=== PATIENT | female | born 2000 | race Caucasian/White ===

== ENCOUNTER 2021-09-22 09:03 | Emergency (ER) | payer OTHER ==
[~2021-09-22] VITALS: Ht 162 cm; Wt 80.7 kg
--- OUTSIDE RECORDS SUMMARY | 2021-09-22 09:16 | XMS REPORT | Clinical Summary ---
Author Author [facility] Organization [facility] Address Unknown Phone Unavailable Care Team Providers Care Dural Mechanic Name Role Phone No, Pcp MACHINIST 2ND SHIFT PP Unavailable Allergies No known active allergies Medications No known medications Active Problems Not on file Social History Date Tobacco Use Types Packs/Day Years Used Never Smoker Smokeless Tobacco: Never Used Sex Assigned at Date Recorded Not on file Last Filed Vital Signs Reading Time Taken Comments Vital Sign 120/80 07/27/2020 6:06 PM CDT Blood Pressure 99 07/27/2020 6:06 PM CDT Pulse 37.2 C (98.9 F) 07/27/2020 6:06 PM CDT Temperature 14 07/27/2020 6:06 PM CDT Respiratory Rate 98% 07/27/2020 6:06 PM CDT Oxygen Saturation - - Inhaled Oxygen Concentration - - Weight - - Height - - Body Mass Index Plan of Treatment Health Maintenance Due Date Last Done Comments Cervical Cancer: 2020 Screening Results Not on filefrom Last 3 Months Insurance Type Payer Benefit Subscriber ID Effective Phone Address Plan / Dates Group [employer] [id number] 2019-P PPO/HMO/EP resent O/POS Care Teams Start Date End Date Dural Mechanic Relationship Specialty 07/27/20 No, Pcp, MACHINIST 2ND SHIFT PCP - General Family N/A Do not use Medicine
--- NOTE | 2021-09-22 09:38 | ED Abdominal Pain ---
General Chief Complaint: Abdominal/GI Problems Stated Complaint: SEVERE PAIN IN R SIDE Source of Information: Patient Exam Limitations: No Limitations History of Present Illness Date Seen by Provider: Sep 22, 2021 Time Seen by Provider: 09:15 Initial Comments Patient to the ER by private conveyance with chief complaint she was seen at walk-in clinic at [facility] yesterday for right flank pain and low hematuria. She had a urine sample done and she says it was consistent with her previous history of kidney stones so they put her on Bactrim and Toradol. She went back today because she did not feel the Toradol was helping. Last dose she took was 7:00 this morning, 2 hours prior to arrival. They repeated a urinalysis told her her urine was negative and told her to come out to the ER to get a CT scan done. They did not give her an outpatient order form. She is not having any fevers nausea vomiting. She says they told her they thought maybe it was her appendix. She has had no abdominal surgeries. No other significant medical history. She has control patch on. Allergies and Home Medications Patient Home Medication List Home Medication List Reviewed: Yes Review of Systems Review of Systems Constitutional: No chills, No diaphoresis EENTM: No Blurred Vision, No Double Vision Respiratory: Denies Cough, Denies Orthopnea Cardiovascular: Denies Chest Pain, Denies Lightheadedness Gastrointestinal: See HPI, Abdominal Pain; Denies Constipated, Denies Diarrhea; Nausea; Denies Vomiting Genitourinary: Denies Burning, Denies Discharge Musculoskeletal: back pain; No joint pain All Other Systems Reviewed Negative Unless Noted: Yes Past Evfkjcj-Ulpjpk-Tqjuoq Hx Patient Social History Tobacco Use?: No Use of E-Cig and/or Vaping dev: No Substance use?: No Alcohol Use?: No Physical Exam Vital Signs Vital Signs - First Documented 09/22/21 09:11 Temp 36.5 Pulse 95 Resp 20 B/P (MAP) 143/101 (115) Pulse Ox 97 O2 Delivery Room Air Capillary Refill : Height/Weight/BMI Height: '" Weight: lbs. oz. kg; BMI Method: General Appearance: WD/WN, mild distress HEENT: PERRL/EOMI, pharynx normal Neck: full range of motion, normal inspection Respiratory: lungs clear, normal breath sounds, no respiratory distress, no accessory muscle use Cardiovascular: normal peripheral pulses, regular rate, rhythm Gastrointestinal: normal bowel sounds, soft, tenderness (Right upper and lower quadrant) Extremities: non-tender, normal inspection, normal capillary refill Back: normal inspection, CVA tenderness (R) Neurologic/Psychiatric: alert, normal mood/affect, oriented x 3 Progress/Results/Core Measures Results/Orders My Orders Orders - MATT LUQUE Ua Culture If Indicated (09/22/21 09:11) Urine Bedside (09/22/21 09:11) Ct Abd/Pelvis Wo(Kidney Stone) (09/22/21 09:24) Vital Signs/I&O 09/22/21 09/22/21 09:11 10:23 Temp 36.5 Pulse 95 89 Resp 20 20 B/P (MAP) 143/101 (115) 115/74 Pulse Ox 97 98 O2 Delivery Room Air Room Air Admisison Planning May Need Admission (Planning): 09:38 Progress Progress Note #1: Time: 09:38 Progress Note Patient's history, symptomology and clinical exam is consistent with kidney stone. She does not have Rovsing's or mesenteric signs. She says the Toradol is kicking and that her pain is much better about a 5 out of 10. She does not want a thing for pain or nausea. She does not want a repeat a urine and does not want to perform laboratory examination at this time. We did discuss management and she is very conscientious of cost. She is however in agreement with doing a CT looking for kidney stones without IV contrast. Progress Note #2: Time: 10:44 Progress Note Patient states her pain is tolerable now and she would prefer not to have any parenteral pain medicine. I suspect she probably has passed a small kidney stone that we just missed. She has several others and we discussed following up with urology for consideration of management of kidney stones long-term. She states in the past she took her kidney stone to a urologist and was diagnosed as a calcium kidney stone. She cut out soda and does not take any supplements with calcium in them. We will encourage her to drink plenty of fluids provide her with a note for work, pain medicine, nausea medicine and expectations that in 1 to 2 days her symptoms should be resolving. Diagnostic Imaging Diagonstic Imaging: CT Plain Films/CT/US/NM/MRI: abdomen, pelvis Comments [facility] [employer] [facility] [place], [place] NAME: BERRY FREEDMAN [facility] REC#: [id number] PT STATUS: REG ER : 2000 PHYSICIAN: MATT LUQUE MD ADMIT DATE: 09/22/21/ER Draft Date of Exam:09/22/21 CT ABD/PELVIS WO(KIDNEY STONE) PROCEDURE: CT urinary tract, rule out kidney stone. TECHNIQUE: Multiple contiguous axial images were obtained through the abdomen and pelvis without the use of intravenous contrast. Auto Exposure Controls were utilized during the CT exam to meet ALARA standards for radiation dose reduction. INDICATION: Right lower quadrant abdominal pain. COMPARISON: None FINDINGS: Included portions of the lung bases are clear. CT ABDOMEN: Normal appendix is identified. Small bowel loops are nondistended. Multiple nonobstructive renal calculi are identified bilaterally. Ureters cannot be followed in their entirety, but no calculi are seen along the expected course of either ureter. Additionally, there is no hydroureteronephrosis or other evidence of obstruction. Kidneys have an otherwise unremarkable noncontrast CT appearance. Liver is diffusely hypodense consistent with hepatic steatosis. The spleen, pancreas, and bilateral adrenal glands have an unremarkable noncontrast CT appearance. There is no loculated fluid collection, free fluid or free air within the abdomen. No abnormal mesenteric or retroperitoneal adenopathy is seen. Osseous structures show no acute abnormalities. CT PELVIS: Urinary bladder is unopacified. No calculi are seen within the urinary bladder. There is small amount of free fluid within the pelvis. No loculated fluid collection or free air is seen. There is no abnormal pelvic adenopathy. Osseous structures show no acute abnormalities. IMPRESSION: 1. Multiple punctate bilateral nonobstructive renal calculi. 2. No hydroureteronephrosis or other evidence of obstruction. 3. Small amount of free fluid within the pelvis; possibly physiologic. 4. Hepatic steatosis. Dictated on workstation # [id number] Dict: 09/22/21 1002 Trans: 09/22/21 1007 BROCK [id number] Interpreted by: ELVIRA SINHA MD Electronically signed by: Reviewed: Reviewed by Me Departure Impression Primary Impression: Bilateral nephrolithiasis Disposition: 01 HOME, SELF-CARE Condition: Stable Departure-Patient Inst. Decision time for Depature: 10:44 Referrals: NO,LOCAL PHYSICIAN (PCP) Primary Care Physician JONATHAN ARCOS MD Patient Instructions: Kidney Stones (DC), Kidney Stone Diet, Extracorporeal Shock Wave Lithotripsy (DC) Add. Discharge Instructions: While you do not have a stone in your ureter presently you may have just passed 1. You certainly have lots of small stones in the kidneys that can pass in the future or may never passed. Please call Dr. Arcos, urology to discuss follow-up and management of your kidney stones. Drink lots of fluids. Phenergan 1 tablet every 6 hours as necessary for nausea or vomiting. Hydrocodone 1 tablet every 6 hours as necessary for severe breakthrough pain. Tylenol 650 mg every 6 hours as necessary for pain. Continue to use your Toradol as prescribed. Continue to use the antibiotics as prescribed. Promptly return to the ER if you are having severe nausea vomiting, pain or fevers. Expect symptoms to have generally improved or passed by Saturday, 2 days from now. If not you can follow-up with your primary care provider or the urologist. All discharge instructions reviewed with patient and/or family. Voiced understanding. Scripts Promethazine HCl (Promethazine Tablet) 25 Mg Tablet 25 MG PO Q6H PRN for NAUSEA/VOMITING, #12 TAB 0 Refills Prov: MATT LUQUE 09/22/21 Hydrocodone/Acetaminophen (Hydrocodone-Acetamin 5-325 mg) 1 Each Tablet 1 TAB PO Q6H PRN for PAIN-MODERATE (5-7), #12 TAB 0 Refills Prov: MATT LUQUE 09/22/21 Work/School Note: Work Release Form Date Seen in the Emergency Department: Sep 22, 2021 Return to Work: Sep 23, 2021 Restrictions: No Restrictions Copy Copies To 1: JONATHAN ARCOS MD, TITUS J Sep 22, 2021 09:38
--- NOTE | 2021-09-22 10:08 | Diagnostic Imaging Report ---
PROCEDURE: CT urinary tract, rule out kidney stone. TECHNIQUE: Multiple contiguous axial images were obtained through the abdomen and pelvis without the use of intravenous contrast. Auto Exposure Controls were utilized during the CT exam to meet ALARA standards for radiation dose reduction. INDICATION: Right lower quadrant abdominal pain. COMPARISON: None FINDINGS: Included portions of the lung bases are clear. CT ABDOMEN: Normal appendix is identified. Small bowel loops are nondistended. Multiple nonobstructive renal calculi are identified bilaterally. Ureters cannot be followed in their entirety, but no calculi are seen along the expected course of either ureter. Additionally, there is no hydroureteronephrosis or other evidence of obstruction. Kidneys have an otherwise unremarkable noncontrast CT appearance. Liver is diffusely hypodense consistent with hepatic steatosis. The spleen, pancreas, and bilateral adrenal glands have an unremarkable noncontrast CT appearance. There is no loculated fluid collection, free fluid or free air within the abdomen. No abnormal mesenteric or retroperitoneal adenopathy is seen. Osseous structures show no acute abnormalities. CT PELVIS: Urinary bladder is unopacified. No calculi are seen within the urinary bladder. There is small amount of free fluid within the pelvis. No loculated fluid collection or free air is seen. There is no abnormal pelvic adenopathy. Osseous structures show no acute abnormalities. IMPRESSION: 1. Multiple punctate bilateral nonobstructive renal calculi. 2. No hydroureteronephrosis or other evidence of obstruction. 3. Small amount of free fluid within the pelvis; possibly physiologic. 4. Hepatic steatosis. Dictated by: Dictated on workstation # [id number]
[2021-09-22] MEDS ORDERED: ACHD5005 PO (10:54)
[2021-09-22] MEDS ORDERED: PROM25TA14 PO (10:54)
[2021-09-22 10:59] VITALS: BP 116/71
== END 2021-09-22 11:00 | disposition home or self-care (01) ==
LOC: ER 09:09
DX: N20.0 Calculus of kidney (principal); Z32.02 Encounter for pregnancy test, result negative
CPT/HCPCS: 74176